=== PATIENT | male | born 1980 | race Caucasian/White ===

== ENCOUNTER → 2017-07-06 | Outpatient (CLI) | payer MEDICAID ==
[~2017-07-06] MED LIST: ACET-93 PO; BIFI460C PO; CIPR500T78 PO; CLOT15CR4 TOP; CRAN200C PO; HYDR-757 PO; HYDR473S50 PO; HYDR99LO2 TP; LEVO750T9 PO; LVT.1T PO; MULT-301 PO; OMEP20CA12 PO; OMEP40CA36; PHEN200T27 PO; TYLENOL PO
[2017-07-06 10:21] LABS: BASOPHILS # (AUTO) 0.1 10^3/uL (0.0-0.1); BASOPHILS % (AUTO) 3 % (0-10); EOSINOPHILS % (AUTO) 1 % (0-10); LYMPHOCYTES # (AUTO) 0.5 X 10^3 (1.0-4.0); LYMPHOCYTES % (AUTO) 24 % (12-44); MEAN CORPUSCULAR HEMOGLOBIN 33 PG (25-34); MEAN CORPUSCULAR HGB CONC 34 G/DL (32-36); MEAN CORPUSCULAR VOLUME 98 FL (80-99); MEAN PLATELET VOLUME 8.9 FL (7.4-10.4); MONOCYTES # (AUTO) 0.2 X 10^3 (0.0-1.0); MONOCYTES % (AUTO) 8 % (0-12); NEUTROPHILS # (AUTO) 1.3 X 10^3 (1.8-7.8); NEUTROPHILS % (AUTO) 64 % (42-75); PLATELET COUNT 190 10^3/uL (130-400); RED BLOOD COUNT 4.53 10^6/uL (4.35-5.85); RED CELL DISTRIBUTION WIDTH 14.8 % (10.0-14.5)
--- NOTE | 2017-07-18 12:50 | Physician Query-Final Dx ---
PAM LIMON 07/18/17 1250: Clinic Account Progress/Dx Physician Query: Please give diagnosis need dx for TSH and CBC Date of Service Jul 06, 2017 at 10:07 BABITA MORRISON DO 07/19/17 0713: Clinic Account Progress/Dx DIAGNOSIS: Diagnosis respiratory infection. COPD. Hypothyroid PAM LIMON Jul 18, 2017 12:50 BABITA MORRISON DO Jul 19, 2017 07:13
== END ==
LOC: LAB 10:07
PROVIDERS: ATTEND Family Medicine
DX: E03.9 Hypothyroidism, unspecified (principal); J44.9 Chronic obstructive pulmonary disease, unspecified; J98.8 Other specified respiratory disorders
CPT/HCPCS: 36415; 84443; 85025

== ENCOUNTER 2023-02-26 17:49 | Emergency (ER) | payer MEDICAID ==
[~2023-02-26 17:49] MED LIST changes: +HYDR-4226 PO; -HYDR-757 PO
--- NOTE | 2023-02-26 18:12 | ED Chest Pain ---
General Chief Complaint: Chest Wall Stated Complaint: RIGHT RIB PAIN Nursing Triage Note: PT AMB TO [facility] 5 ACCOMPAINED BY GUARDIAN WITH CC OF R RIB PAIN SINCE THIS AFTERNOON. GUARDIAN STATES PT WENT TO BBQ WHEN PT BEGAN TO HAVE PAIN. DENIES VOMITING AND NAUSEA Source: other (SISTER IS LEGAL GUARDIAN) Exam Limitations: other (PT WITH M.R., UNABLE TO GIVE HISTORY) History of Present Illness Date Seen by Provider: February 26, 2023 Time Seen by Provider: 18:03 Initial Comments PT ARRIVES VIA POV FROM HOME, WITH SISTER / LEGAL GUARDIAN AND ANOTHER ADULT FEMALE PT C/O RIGHT RIB PAIN THIS AFTERNOON WAS AT A BBQ TODAY, AND PAIN BEGAN SOMETIME AFTER ARRIVING AT THE BBQ NO INJURY NO COUGH NO FEVER OR RECENT ILLNESS NO SHORTNESS OF BREATH NO NAUSEA/VOMITING. DID HAVE DIARRHEA X 1 EARLIER TODAY, BEFORE THE BBQ NO URINARY SYMPTOMS PT HAS NOT HAD ANYTHING FOR PAIN PT WITH DOWN'S SYNDROME, AND HAS HISTORY OF GERD/ULCER. HE HAS HAD AN OPEN CHOLECYSTECTOMY IN 2016. HE HAS HAD A LOW WBC, AND HAS BEEN REFERRED TO DR. LORA--FIRST APPOINTMENT IS NEXT WEEK PCP: DR. MORRISON Allergies and Home Medications Allergies Coded Allergies: No Known Drug Allergies (Unverified , 12/30/15) Patient Home Medication List Clotrimazole/Betamethasone Dip (Lotrisone Cream) 15 Gm Cream..g., TOP BID, (Reported) Entered as Reported by: LONA DEVI on 12/24/15 1048 Levothyroxine Sodium (Levothyroxine 100 Mcg Tab) 100 Mcg Tablet, 100 MCG PO DAILY, (Reported) Entered as Reported by: KARI FISHER on 12/08/14 0137 Review of Systems Review of Systems Constitutional: no symptoms reported EENTM: No Symptoms Reported Respiratory: No Symptoms Reported Cardiovascular: See HPI, Chest Pain Gastrointestinal: See HPI, Diarrhea; Denies Nausea, Denies Vomiting Genitourinary: No Symptoms Reported Musculoskeletal: see HPI Skin: no symptoms reported Psychiatric/Neurological: See HPI, Pre-Existing Deficit (M.R./DOWN'S) Endocrine: No Symptoms Reported Hematologic/Lymphatic: See HPI Past Uuwkwwc-Muzkrh-Zkrpiq Hx Patient Social History Tobacco Use?: No Smoking Status: Never a Smoker Smokeless Tobacco Frequency: Never a User Use of E-Cig and/or Vaping [place]: Never a User Substance use?: No Alcohol Use?: No Pt feels they are or have been: No Immunizations Up To Date PED Vaccines UTD: Yes Seasonal Allergies Seasonal Allergies: Yes Past Medical History Surgery/Hospitalization HX: THYROID, Surgeries: Yes (OPEN CHOLECYSTECTOMY 2015) Gallbladder Respiratory: Yes Sleep Apnea Cardiac: No Neurological: Yes (M.R. / DOWN' SYNDROME) Developmental Disorder Genitourinary: Yes UTI-Chronic Gastrointestinal: Yes (GI BLEED 2015) Gastroesophageal Reflux, Gastrointestinal Bleed Musculoskeletal: No Endocrine: Yes Hypothyroidsim HEENT: Yes Loss of Vision: Bilateral Hearing Impairment: Hard of Hearing Cancer: No Psychosocial: No Integumentary: No Blood Disorders: No Family Medical History UNABLE TO ANSWER Physical Exam Vital Signs Vital Signs - First Documented 02/26/23 18:01 Temp 36.6 Pulse 92 Resp 18 B/P (MAP) 135/70 (91) Pulse Ox 100 O2 Delivery Room Air Capillary Refill : Less Than 3 Seconds Height, Weight, BMI Height: 5'5.00" Weight: 182lbs. 3.0oz. 82.902483dm; 27.2 BMI Method:Stated General Appearance: No Apparent Distress, WD/WN, Other (DOES NOT APPEAR ILL OR TO BE IN ANY DISCOMFORT OR DISTRESS. WALKS UPRIGHT AND MOVES WITHOUT DIFFICULTY; TYPICAL DOWN'S SYNDROME FEATURES) HEENT: PERRL/EOMI Neck: Normal Inspection Respiratory: Normal Breath Sounds, No Accessory Muscle Use, No Respiratory Distress, Other (RIGHT ANTERIOR/LOWER RIB -CHEST WALL TENDERNESS. NO CREPITANCE OR DEFORMITY OR SUB Q AIR. NO EXTERNAL EVIDENCE OF TRAUMA AND NO RASH TO AREA. ) Cardiovascular: Regular Rate, Rhythm, No Edema, No JVD, Normal Peripheral Pulses, Systolic Murmur (2-36) Gastrointestinal: Normal Bowel Sounds, No Organomegaly, Non Tender, Soft Extremity: Normal Inspection, No Pedal Edema Neurologic/Psychiatric: Alert, No Motor/Sensory Deficits, Normal Mood/Affect, Other (MENTATION AT BASELINE, MINIMAL VERBAL SKILLS. PT IS ABLE TO FOLLOW COMMANDS. NO FOCAL NEURO DEFICITS. ) Skin: Normal Color, Warm/Dry; No Ecchymosis, No Erythema, No Mottled, No Pallor, No Petechia, No Rash Progress/Results/Core Measures Results/Orders Lab Results Laboratory Tests Test 02/26/23 18:16 02/26/23 18:41 Range/Units White Blood Count 2.2 L 4.3-11.0 10^3/uL Red Blood Count 3.97 L 4.30-5.52 10^6/uL Hemoglobin 14.6 13.3-17.7 g/dL Hematocrit 41 40-54 % Mean Corpuscular Volume 103 H 80-99 fL Mean Corpuscular Hemoglobin 37 H 25-34 pg Mean Corpuscular Hemoglobin Concent 36 32-36 g/dL Red Cell Distribution Width 13.7 10.0-14.5 % Platelet Count 141 130-400 10^3/uL Mean Platelet Volume 9.0 9.0-12.2 fL Immature Granulocyte % (Auto) 0 % Neutrophils (%) (Auto) 69 42-75 % Lymphocytes (%) (Auto) 18 12-44 % Monocytes (%) (Auto) 10 0-12 % Eosinophils (%) (Auto) 1 0-10 % Basophils (%) (Auto) 2 0-10 % Neutrophils # (Auto) 1.5 L 1.8-7.8 10^3/uL Lymphocytes # (Auto) 0.4 L 1.0-4.0 10^3/uL Monocytes # (Auto) 0.2 0.0-1.0 10^3/uL Eosinophils # (Auto) 0.0 0.0-0.3 10^3/uL Basophils # (Auto) 0.1 0.0-0.1 10^3/uL Immature Granulocyte # (Auto) 0.0 0.0-0.1 10^3/uL D-Dimer 0.41 0.00-0.49 UG/ML Sodium Level 138 135-145 MMOL/L Potassium Level 3.3 L 3.6-5.0 MMOL/L Chloride Level 107 98-107 MMOL/L Carbon Dioxide Level 20 L 21-32 MMOL/L Anion Gap 11 5-14 MMOL/L Blood Urea Nitrogen 11 7-18 MG/DL Creatinine 0.86 0.60-1.30 MG/DL Estimat Glomerular Filtration Rate 112 BUN/Creatinine Ratio 13 Glucose Level 136 H 70-105 MG/DL Calcium Level 8.6 8.5-10.1 MG/DL Corrected Calcium 9.4 8.5-10.1 MG/DL Magnesium Level 1.7 1.6-2.4 MG/DL Total Bilirubin 1.3 H 0.1-1.0 MG/DL Aspartate Amino Transf (AST/SGOT) 32 5-34 U/L Alanine Aminotransferase (ALT/SGPT) 23 0-55 U/L Alkaline Phosphatase 92 40-136 U/L Troponin I < 0.028 <0.028 NG/ML C-Reactive Protein High Sensitivity 0.25 0.00-0.50 MG/DL B-Type Natriuretic Peptide 23.0 <100.0 PG/ML Total Protein 6.6 6.4-8.2 GM/DL Albumin 3.0 L 3.2-4.5 GM/DL Amylase Level 54 25-125 U/L Lipase 16 8-78 U/L Urine Color YELLOW Urine Clarity CLEAR Urine pH 6.0 5-9 Urine Specific [place] 1.020 1.016-1.022 Urine Protein NEGATIVE NEGATIVE Urine Glucose (UA) NEGATIVE NEGATIVE Urine Ketones NEGATIVE NEGATIVE Urine Nitrite NEGATIVE NEGATIVE Urine Bilirubin NEGATIVE NEGATIVE Urine Urobilinogen 4.0 < = 1.0 MG/DL Urine Leukocyte Esterase NEGATIVE NEGATIVE Urine RBC (Auto) NEGATIVE NEGATIVE Urine RBC RARE /HPF Urine WBC 0-2 /HPF Urine Squamous Epithelial Cells 0-2 /HPF Urine Crystals NONE /LPF Urine Bacteria TRACE /HPF Urine Casts NONE /LPF Urine Mucus NEGATIVE /LPF Urine Culture Indicated NO My Orders Orders - TATE ANDREWS DO Monitor-Rhythm Ecg Trace Only (02/26/23 18:03) Ed Iv/Invasive Line Start (02/26/23 18:10) Ekg Tracing (02/26/23 18:10) Amylase (02/26/23 18:10) Bnp Noé (02/26/23 18:10) Cbc With Automated Diff (02/26/23 18:10) Comprehensive Metabolic Panel (02/26/23 18:10) Hs C Reactive Protein (02/26/23 18:10) Fibrin Degradation Products (02/26/23 18:10) Lipase (02/26/23 18:10) Magnesium (02/26/23 18:10) Ua Culture If Indicated (02/26/23 18:10) Troponin I Noé (02/26/23 18:10) Chest 1 View, Ap/Pa Only (02/26/23 18:10) Ct Marcia Chest/Noang Abd-Pelv W (02/26/23 18:44) Iohexol Injection (Omnipaque 350 Mg/Ml 1 (02/26/23 19:00) Received Contrast (Hold Metformin- Contr (02/26/23 19:00) Ns (Ivpb) (Sodium Chloride 0.9% Ivpb Bag (02/26/23 19:00) Potassium Chloride (Tablet) (Klor Con Ta (02/26/23 19:45) Ketorolac Injection (Toradol Injection) (02/26/23 19:45) Medications Given in ED Current Medications Medications Dose Ordered Sig/Mariangel Route Start Time Stop Time Status Last Admin Dose Admin Iohexol 100 ml ONCE ONCE IV 02/26/23 19:00 02/26/23 19:01 DC 02/26/23 19:03 69 ML Sodium Chloride 100 ml ONCE ONCE IV 02/26/23 19:00 02/26/23 19:01 DC 02/26/23 19:03 80 ML Vital Signs/I&O 02/26/23 18:01 Temp 36.6 Pulse 92 Resp 18 B/P (MAP) 135/70 (91) Pulse Ox 100 O2 Delivery Room Air Blood Pressure Mean: 91 Progress Progress Note : Progress Note LAB INCLUDING CBC, CMP, AMYLASE/LIPASE, TROPONIN, BNP, UA ORDERED, IN ADDITION TO EKG AND CXR, AND CT CHEST/ABDOMEN/PELVIS. PERTINENT LAB RESULTS: -WBC 2.2--THIS IS A KNOWN PROBLEM AND IS BEING REFERRED TO DR. LORA / ONCOLOGY-HEMATOLOGY, HAS APPOINTMENT THIS WEEK. HGB/PLATELETS ARE NORMAL -K+ 3.3--GIVEN ORAL KCL. OTHER ELECTROLYTES ARE NORMAL, RENAL FUNCTION IS NORMAL -GLUCOSE 136, NON-FASTING -BILIRUBIN 1.3--HX OF CHOLECYSTECTOMY, WITH NORMAL LFT'S AND NORMAL AMYLASE/LIPASE -TROPONIN AND BNP ARE NEGATIVE -UA IS CLEAR EKG IS UNREMARKABLE CXR IS UNREMARKABLE CT ANGIOGRAM CHEST/ABDOMEN/PELVIS UNREMARKABLE GIVEN KCL AND TORADOL UNEVENTFUL ER STAY VITALS STABLE NO COMPLAINTS OF CHEST PAIN FOR ENTIRE ER STAY DISCUSSED TEST RESULTS, ANTICIPATED COURSE, SYMPTOMATIC TREATMENT, NEED FOR FOLLOW UP AND RETURN PRECAUTIONS LAST VISIT HERE WAS IN 2016. REVIEWED OLD RECORDS INCLUDING ER VISITS, ADMITS/H&P'S/CONSULTS/DISCHARGE SUMMARIES, TESTS/PROCEDURES Initial ECG Impression Date: February 26, 2023 Initial ECG Impression Time: 18:23 Initial ECG Rate: 85 Initial ECG Rhythm: Normal Sinus Initial ECG Intervals: Normal Initial ECG Intervals SC 169 QRS 84 QT/QTC 397/439 Initial ECG Impression: Normal Comment INTERPRETED BY ME Diagnostic Imaging Comments CXR--PER RADIOLOGIST REPORT AT 1855 FINDINGS: Heart size and pulmonary vascularity are within normal limits. No pneumothorax or consolidation is identified. There is no significant pleural fluid. IMPRESSION: No acute abnormality. CT ANGIOGRAM CHEST / ABDOMEN-PELVIS--PER RADIOLOGIST REPORT AT 1932 FINDINGS: CTA CHEST: The thoracic aorta is of normal caliber without evidence of intimal abnormality to indicate dissection. There is no evidence of aneurysm. 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 No mediastinal hematoma is identified. There is suboptimal opacification of peripheral pulmonary arteries; however, no central embolism is identified. There is no significant pleural or pericardial fluid. Lungs appear clear without evidence of mass or infiltrate. No pathologically enlarged adenopathy is seen. IMPRESSION: No CTA evidence of great vessel abnormality in the thorax. CT ABDOMEN/PELVIS: There is no evidence of focal hepatic, pancreatic, adrenal gland or splenic abnormality. Kidneys are also unremarkable. Abdominal aorta is of normal caliber without evidence of dissection. Gallbladder is surgically absent with mild extrahepatic biliary ductal dilatation. There is no evidence of free fluid. No bowel obstruction is identified. There is no evidence of pathologically enlarged adenopathy within the abdomen or pelvis. Partially opacified urinary bladder is unremarkable. There is advanced degenerative disc and facet disease at L5-S1 with grade 2 anterolisthesis of L5 on S1 and associated sclerosis. IMPRESSION: No evidence of acute abdominal or pelvic abnormality. Note is made of advanced degenerative change and progressive spondylolisthesis at L5-S1. Reviewed: Reviewed by Me Departure Impression Primary Impression: RIGHT ANTERIOR CHEST WALL PAIN Additional Impressions: Neutropenia Hypokalemia Disposition: 01 HOME, SELF-CARE Condition: Stable Departure-Patient Inst. Decision time for Depature: 19:35 Referrals: BABITA MORRISON DO (PCP/Family) Primary Care Physician Patient Instructions: Chest Pain That Is Not Caused by the Heart (DC), Hypokalemia (DC), Neutropenia (DC) Add. Discharge Instructions: LOTS OF CLEAR LIQUIDS-ESPECIALLY WATER AND GATORADE TYLENOL AND MOTRIN NEEDED FOR PAIN FOLLOW UP WITH DR. MORRISON IN 3-4 DAYS IF NO BETTER, RETURN TO ER IF WORSE KEEP YOUR APPOINTMENT THIS WEEK WITH DR. LORA All discharge instructions reviewed with patient and/or family. Voiced understanding. TATE ANDREWS DO February 26, 2023 18:12
[2023-02-26 18:23] LABS: BASOPHILS # (AUTO) 0.1 10^3/uL (0.0-0.1); BASOPHILS % (AUTO) 2 % (0-10); EOSINOPHILS % (AUTO) 1 % (0-10); HEMATOCRIT 41 % (40-54); HEMOGLOBIN 14.6 g/dL (13.3-17.7); LYMPHOCYTES # (AUTO) 0.4 10^3/uL (1.0-4.0); LYMPHOCYTES % (AUTO) 18 % (12-44); MEAN CORPUSCULAR HEMOGLOBIN 37 pg (25-34); MEAN CORPUSCULAR HGB CONC 36 g/dL (32-36); MEAN CORPUSCULAR VOLUME 103 fL (80-99); MONOCYTES # (AUTO) 0.2 10^3/uL (0.0-1.0); MONOCYTES % (AUTO) 10 % (0-12); NEUTROPHILS # (AUTO) 1.5 10^3/uL (1.8-7.8); NEUTROPHILS % (AUTO) 69 % (42-75); PLATELET COUNT 141 10^3/uL (130-400); WHITE BLOOD COUNT 2.2 10^3/uL (4.3-11.0)
[2023-02-26 18:32] LABS: CHLORIDE 107 MMOL/L (98-107); POTASSIUM 3.3 MMOL/L (3.6-5.0); SODIUM 138 MMOL/L (135-145)
[2023-02-26 18:33] LABS: AMYLASE 54 U/L (25-125); CALCIUM 8.6 MG/DL (8.5-10.1)
[2023-02-26 18:34] LABS: GLUCOSE 136 MG/DL (70-105); TOTAL PROTEIN 6.6 GM/DL (6.4-8.2)
[2023-02-26 18:35] LABS: CARBON DIOXIDE 20 MMOL/L (21-32)
[2023-02-26 18:36] LABS: BILIRUBIN,TOTAL 1.3 MG/DL (0.1-1.0)
[2023-02-26 18:37] LABS: ALKALINE PHOSPHATASE 92 U/L (40-136)
[2023-02-26 18:38] LABS: CREATININE SERUM 0.86 MG/DL (0.60-1.30); GFR ESTIMATED 112
[2023-02-26 18:39] LABS: BUN/CREATININE RATIO 13
[2023-02-26 18:40] LABS: MAGNESIUM 1.7 MG/DL (1.6-2.4)
[2023-02-26 18:41] LABS: ALANINE AMINOTRANSFERASE 23 U/L (0-55); LIPASE 16 U/L (8-78)
[2023-02-26 18:44] LABS: BILIRUBIN,URINE NEGATIVE (NEGATIVE); CLARITY,URINE CLEAR; COLOR,URINE YELLOW; GLUCOSE, URINE (UA) NEGATIVE (NEGATIVE); KETONES,URINE NEGATIVE (NEGATIVE); LEUKOCYTE ESTERASE ,URINE NEGATIVE (NEGATIVE); NITRITE,URINE NEGATIVE (NEGATIVE); PROTEIN,URINE NEGATIVE (NEGATIVE)
[2023-02-26 18:52] LABS: BACTERIA,URINE TRACE /HPF; RBC,URINE RARE /HPF; SQUAMOUS EPITHELIAL CELL,UR 0-2 /HPF; WBC,URINE 0-2 /HPF
--- NOTE | 2023-02-26 18:54 | Diagnostic Imaging Report ---
INDICATION: Chest pain. EXAMINATION: AP view of the chest was obtained. COMPARISON: Study of 02/19/2016. FINDINGS: Heart size and pulmonary vascularity are within normal limits. No pneumothorax or consolidation is identified. There is no significant pleural fluid. IMPRESSION: No acute abnormality. Dictated by: Dictated on workstation # [id number]
[2023-02-26] MEDS ORDERED: HOLD METFORMIN - RECEIVED CONTRAST 20 ML VIAL IV SCH (19:00)
[2023-02-26] MEDS ORDERED: IOHEXOL 350 MG/ML 100 ML (OMNIPAQUE 350) VIAL IV ONE (19:00)
[2023-02-26] MEDS ORDERED: NS 100 ML (IVPB) BAG IV ONE (19:00)
--- NOTE | 2023-02-26 19:29 | Diagnostic Imaging Report ---
INDICATION: R Chest pain/RUQ pain TECHNIQUE: CTA chest, abdomen and pelvis. Thin axial sections through the chest, abdomen and pelvis were obtained following intravenous contrast bolus. Multiplanar MIP images were reconstructed and reviewed. All CT scans use one or more of the following dose optimizing techniques: automated exposure control, MA and/or KvP adjustment based on patient size and exam type or iterative reconstruction. FINDINGS: CTA CHEST: The thoracic aorta is of normal caliber without evidence of intimal abnormality to indicate dissection. There is no evidence of aneurysm. 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 No mediastinal hematoma is identified. There is suboptimal opacification of peripheral pulmonary arteries; however, no central embolism is identified. There is no significant pleural or pericardial fluid. Lungs appear clear without evidence of mass or infiltrate. No pathologically enlarged adenopathy is seen. IMPRESSION: No CTA evidence of great vessel abnormality in the thorax. CT ABDOMEN/PELVIS: There is no evidence of focal hepatic, pancreatic, adrenal gland or splenic abnormality. Kidneys are also unremarkable. Abdominal aorta is of normal caliber without evidence of dissection. Gallbladder is surgically absent with mild extrahepatic biliary ductal dilatation. There is no evidence of free fluid. No bowel obstruction is identified. There is no evidence of pathologically enlarged adenopathy within the abdomen or pelvis. Partially opacified urinary bladder is unremarkable. There is advanced degenerative disc and facet disease at L5-S1 with grade 2 anterolisthesis of L5 on S1 and associated sclerosis. IMPRESSION: No evidence of acute abdominal or pelvic abnormality. Note is made of advanced degenerative change and progressive spondylolisthesis at L5-S1. Dictated by: Dictated on workstation # [id number]
[2023-02-26] MEDS ORDERED: KCL 10 MEQ TAB (MICRO K) PO ONE ×2 (19:42→19:45)
[2023-02-26] MEDS ORDERED: KETOROLAC 15 MG/ML VIAL IVP ONE (19:45)
[2023-02-26 19:47] VITALS: BP 129/80
== END 2023-02-26 19:48 | disposition home or self-care (01) ==
LOC: EDUNIT# 17:49 → ER 17:52
DX: R07.81 Pleurodynia (principal); D70.9 Neutropenia, unspecified; E87.6 Hypokalemia; Z28.310 Unvaccinated for COVID-19
CPT/HCPCS: 36415; 71045; 71275; 74177; 80053; 81000; 82150; 83690; 83735; 83880; 84484; 85025; 85379; 86141